=== PATIENT | female | born 1975 | race Caucasian/White ===

== ENCOUNTER 2018-10-31 14:35 | Inpatient (IN) | payer OTHER ==
[2018-10-31 16:03] VITALS: BMI 18.6
--- NOTE | 2018-10-31 17:48 | HP ---
CIWA Score Nausea/Vomitin (Vomited x 2 while waiting.) Muscle Tremors: 4-Moderate,w/Arms Extend Anxiety: 3 Agitation: 3 Paroxysmal Sweats: 3 (Facial moisture) Orientation: 1-Uncertain about Date Tacttile Disturbances: 0-None Auditory Disturbances: 0-None Visual Disturbances: 0-None Headache: 0-None Present CIWA-Ar Total Score: 17 - Admission Criteria OAS Guidelines: Admission for Medically Managed Detox: Requires at least one of the followin. CIWA greater than 12 2. Seizures within the past 24 hours 3. Delirium tremens within the past 24 hours 4. Hallucinations within the past 24 hours 5. Acute intervention needed for co occurring medical disorder 6. Acute intervention needed for co occurring psychiatric disorder 7. Severe withdrawal that cannot be handled at a lower level of care (continued vomiting, continued diarrhea, abnormal vital signs) requiring intravenous medication and/or fluids 8. Patient presents the following: CIWA greater than 12 Admission Criteria Met: Admission criteria met Admission ROS [facility] Chief Complaint: States having withdrawals. Allergies/Adverse Reactions: Allergies Allergy/AdvReac Type Severity Reaction Status Date / Time No Known Allergies Allergy Verified 10/31/18 17:10 History of Present Illness: Here for detox from alcohol, benzo, cocaine and opiates. Alcohol use began at age 10. Nicotine use began at age 10. Cocaine use began at age 12. Heroin use began at age 13. Continues to use opiates despite being on methadone. IVDU. Denies sharing needles or works. Xanax use began at age 23. (Does not taken in a couple of days) Currently on [facility] MMTP ([phone]) - states started about 1 month ago. States currently on 60 mg Methadone and states last medicated today. Hx 5 overdoses. States last 1 year ago. States has a Narcan kit. Denies thoughts of harming self or others. Hx: Asthma - denies recent exacerbation. Search Terms: Cristela Leon, 1975 Search Date: 10/31/2018 05:37:57 PM The Drug Utilization Report below displays all of the controlled substance prescriptions, if any, that your patient has filled in the last twelve months. The information displayed on this report is compiled from pharmacy submissions to the Department, and accurately reflects the information as submitted by the pharmacies. This report was requested by: Анна Sagastume | Reference #: [id number] Others' Prescriptions Patient Name: Cristela Leon Date: 1975 Address: [place] [address] Sex: Female Rx Written Rx Dispensed Drug Quantity Days Supply Prescriber Name 09/19/2018 09/19/2018 chlordiazepoxide 25 mg capsule 8 2 Mandeep Milner ( SERGO) Patient Name: Cristela Leon Date: 1975 Address: [address] [place] [address] [address] [place] [address] Sex: Female Rx Written Rx Dispensed Drug Quantity Days Supply Prescriber Name 06/10/2018 06/10/2018 methadone hcl 10 mg tablet 11 6 Ingris Sagastume Exam Limitations: No Limitations - Ebola screening Have you traveled outside of the country in the last 21 days: No Have you had contact with anyone from an Ebola affected area: No Have you been sick,other than usual withdrawal symptoms: No Do you have a fever: No - Review of Systems Constitutional: Chills, Diaphoresis EENT: reports: Blurred Vision, Dental Problems (Missing and broken teeth. Some tooth pain.) Respiratory: reports: No Symptoms reported Cardiac: reports: No Symptoms Reported GI: reports: Diarrhea, Abdominal cramping : reports: No Symptoms Reported Musculoskeletal: reports: Back Pain (Chronic low back pain achy "10" increases w / movement and improves with rest) Integumentary: reports: Lesions (Injection sites) Neuro: reports: Numbness (In fingers), Tremors Endocrine: reports: No Symptoms Reported Hematology: reports: No Symptoms Reported Psychiatric: reports: Judgement Intact, Agitated, Anxious, Depressed (Denies thoughts of harming self or others), Disorientated (U) Other Systems: Reviewed and Negative (of date) Patient History - Patient Medical History Hx Asthma: No Hx Chronic Obstructive Pulmonary Disease (COPD): No Hx Cardiac Disorders: No Hx Hypertension: No Hx Seizures: No Hx Diabetes: No Hx Gastrointestinal Disorders: No Hx Genitourinary Disorders: No Hx Sexually Transmitted Disorders: No Hx Renal Disease (ESRD): No Hx Human Immunodeficiency Virus (HIV): No (2017) Hx Depression: Yes Hx Suicide Attempt: Yes (Pt tried her wrist at age 13 yrs.) Hx Schizophrenia: No - Patient Surgical History Past Surgical History: Yes Hx Abdominal Surgery: Yes (hysterectomy in 2002 from fibroids.) - PPD History Previous Implant?: Yes Documented Results: Negative w/o proof Implanted On Prior [facility] Admission?: No PPD to be Administered?: Yes - Reproductive History Patient is a Female of Child Bearing Age (11 -55 yrs old): Yes LMP comment: Hysterectomy 2002 Patient : No - Smoking Cessation Smoking history: Current every day smoker Have you smoked in the past 12 months: Yes Aproximately how many cigarettes per day: 20 Hx Chewing Tobacco Use: No Initiated information on smoking cessation: Yes 'Breaking Loose' booklet given: 10/31/18 - Substance & Tx. History Hx Alcohol Use: Yes Hx Substance Use: Yes Substance Use Type: Alcohol, Cocaine, Heroin, Opiates Hx Substance Use Treatment: Yes (detox, rehab, currently on in a MMTP) - Substances Abused Alcohol Route: Oral Frequency: Daily Amount used: 2 four locos/ 1 pint rum Age of first use: 10 Date of Last Use: 10/30/18 Alprazolam (Xanax) Route: Oral Frequency: Daily Amount used: 4mg Age of first use: 23 Date of Last Use: 10/30/18 Cocaine Route: Injection Frequency: Daily Amount used: 1 gram Age of first use: 12 Date of Last Use: 10/30/18 Heroin Route: Injection Frequency: Daily Amount used: 2-3 gram Age of first use: 13 Date of Last Use: 10/31/18 Admission Physical Exam S - Vital Signs Vital Signs: Vital Signs - 24 hr 10/31/18 16:01 Temperature 96.0 F L Pulse Rate 62 Respiratory 18 Rate Blood Pressure 106/66 - Physical General Appearance: Yes: Mild Distress, Tremorous, Sweating, Anxious HEENTM: Yes: EOMI, Hearing grossly Normal, Normocephalic, [place] (Pupils = 2 mm), Pharynx Normal, Nasal Congestion, Other (Missing and chipped teeth, dental caries. No abscess noted) Respiratory: Yes: Lungs Clear, Normal Breath Sounds, No Respiratory Distress Neck: Yes: No masses,lesions,Nodules, Supple Breast: Yes: Breast Exam Deferred Cardiology: Yes: Regular Rhythm, Regular Rate, S1, S2 Abdominal: Yes: Non Tender, Flat, Soft, Increased Bowel Sounds Genitourinary: Yes: Within Normal Limits Back: Yes: Normal Inspection Musculoskeletal: Yes: full range of Motion, Gait Steady Extremities: Yes: Normal Capillary Refill, Normal Range of Motion, Non-Tender, Tremors (hand tremors at rest which increase with arms elevated) Neurological: Yes: child health associate II-XII NML intact, Alert, Motor Strength 5/5, Normal Mood /Affect Integumentary: Yes: Normal Color, Dry (Decreased skin turgo), Warm, Track Chatman (Old and new track chatman on both arms. Increased erythema (R) antecubital area.) Lymphatic: Yes: Within Normal Limits - Diagnostic (1) Alcohol dependence with uncomplicated withdrawal Current Visit: Yes Status: Acute (2) Sedative, hypnotic or anxiolytic dependence with withdrawal, uncomplicated Current Visit: Yes Status: Acute (3) Cocaine dependence, uncomplicated Current Visit: Yes Status: Chronic (4) Methadone maintenance therapy patient Current Visit: Yes Status: Chronic (5) Nicotine dependence, uncomplicated Current Visit: Yes Status: Acute Qualifiers: Nicotine product type: cigarettes Qualified Code(s): F17.210 - Nicotine dependence, cigarettes, uncomplicated (6) Asthma Current Visit: Yes Status: Chronic Qualifiers: Asthma severity: unspecified severity Asthma persistence: unspecified Asthma complication type: unspecified Qualified Code(s): J45.909 - Unspecified asthma, uncomplicated (7) Pain, dental Current Visit: Yes Status: Chronic (8) Track chatman due to intravenous drug abuse Current Visit: Yes Status: Chronic (9) Opioid dependence, uncomplicated Current Visit: Yes Status: Chronic Comment: Continues to use heroin and other opiates despite being on methadone program. Cleared for Admission [facility] - Detox or Rehab [facility] Level of Care: Medically Managed Detox Regimen/Protocol: Librium [facility] Breath Alcohol Content Breath Alcohol Content: 0 Urine Pregancy Test - Result Urine Test Results: Negative- NO Line Present Urine Drug Screen - Results Drug Screen Negative: No Urine Drug Screen Results: KRISTAN-Cocaine, OPI-Opiates, MET-Methamphetamine, MTD- Methadone, FEN-Fentanyl
[2018-10-31] MEDS ORDERED: P-EPHED 60MG/TRIPROLIDI 2.5MG TABLET PO PRN (19:15)
[2018-10-31] MEDS ORDERED: LOPERAMIDE HCL 2 MG CAPSULE PO PRN (19:15)
[2018-10-31] MEDS ORDERED: MAG HYDROX/AL HYDROX/SIMETH 30 ML UNIT-DOSE CUP PO PRN (19:15)
[2018-10-31] MEDS ORDERED: MAGNESIUM HYDROX 2400MG/30ML ORAL SUSPENSION 30 ML CUP PO PRN (19:15)
[2018-10-31] MEDS ORDERED: MAGNESIUM CITRATE 300 ML BOTTLE PO PRN (19:15)
[2018-10-31] MEDS ORDERED: IBUPROFEN 400 MG TABLET (FP) PO PRN (19:15)
[2018-10-31] MEDS ORDERED: chlordiazePOXIDE HCL 25 MG CAPSULE PO PRN (19:15)
[2018-10-31] MEDS ORDERED: ACETAMINOPHEN 325 MG TABLET (FP) PO PRN (19:15)
[2018-10-31] MEDS ORDERED: chlordiazePOXIDE HCL 25 MG CAPSULE PO ONE (19:15)
[2018-10-31] MEDS ORDERED: MENTHOL/PHENOL 1 EACH UD MM PRN (19:15)
[2018-10-31] MEDS ORDERED: ALBUTEROL SO4 0.083% IH SOL 2.5 MG/3 ML VIAL.NEB. NEB PRN (19:17)
[2018-10-31] MEDS ORDERED: BENZOCAINE 20 % GEL TUBE MM PRN (19:17)
[2018-10-31] MEDS ORDERED: MELATONIN 5 MG TABLETS PO PRN (22:00)
[2018-10-31] MEDS: THIAMINE HCL 100 MG TABLET (FP) PO SCH (23:21)
[2018-10-31] MEDS: chlordiazePOXIDE HCL 25 MG CAPSULE PO SCH (23:21)
[2018-11-01] MEDS: chlordiazePOXIDE HCL 25 MG CAPSULE PO SCH ×4 (05:48→23:01)
[2018-11-01] MEDS ORDERED: METHADONE HCL 10 MG TABLET PO SCH (09:00)
[2018-11-01] MEDS ORDERED: METHADONE HCL 40 MG DISPERSABLE TABLET ONE (09:25)
[2018-11-01] MEDS ORDERED: METHADONE HCL 10 MG TABLET ONE (09:26)
--- NOTE | 2018-11-01 10:06 | EKG ---
Test Reason : Blood Pressure : / mmHG Vent. Rate : 064 BPM Atrial Rate : 064 BPM P-R Int : 148 ms QRS Dur : 082 ms QT Int : 412 ms P-R-T Axes : 057 074 056 degrees QTc Int : 425 ms NORMAL SINUS RHYTHM NORMAL ECG NO PREVIOUS ECGS AVAILABLE Confirmed by Caleb Horvath MD ([id number]) on 11/01/2018 10:06:14 AM Referred By: Confirmed By:Caleb Horvath MD
[2018-11-01 10:28] LABS: HEMATOCRIT 37.7 % (32.4-45.2); HEMOGLOBIN 11.9 GM/dL (10.7-15.3); MCHC 31.6 g/dl (32.0-36.0); MEAN CELL VOLUME 85.7 fl (80-96); MEAN PLT VOLUME 7.8 fl (7.5-11.1); PLATELET COUNT 280 K/MM3 (134-434); RDW 14.7 % (11.6-15.6); WHITE BLOOD COUNT 4.8 K/mm3 (4.0-10.0)
[2018-11-01 10:40] LABS: ALK PHOS 86 U/L (45-117); ANION GAP 7 MMOL/L (8-16); BILIRUBIN,TOTAL 0.3 mg/dL (0.2-1); BLOOD UREA NITROGEN 9 mg/dL (7-18); CALCIUM 8.6 mg/dL (8.5-10.1); CHLORIDE 106 mmol/L (98-107); CO2 29 mmol/L (21-32); CREATININE 0.6 mg/dL (0.55-1.3); GLUCOSE,RANDOM 90 mg/dL (74-106); POTASSIUM 4.2 mmol/L (3.5-5.1); SGOT/AST 30 U/L (15-37); SGPT/ALT 57 U/L (13-61); SODIUM 142 mmol/L (136-145); TOT PROT 6.5 g/dl (6.4-8.2)
[2018-11-01] MEDS: BACITRACIN 0.9 GM PACKET TP SCH ×2 (10:40→23:01)
[2018-11-01] MEDS: PRENATAL VITAMINS W/ FOLIC ACID TABLET (FP) PO SCH (10:40)
[2018-11-01] MEDS: NICOTINE 21 MG/24 HOURS TOPICAL PATCH TD SCH (10:40)
[2018-11-01] MEDS: METHADONE 40 MG, METHADONE 20 MG PO SCH (10:41)
--- NOTE | 2018-11-01 12:47 | PN ---
S CIWA - CIWA Score Nausea/Vomitin-No Nausea/No Vomiting Muscle Tremors: None Anxiety: 2 Agitation: 3 Paroxysmal Sweats: 3 Orientation: 0-Oriented Tacttile Disturbances: 0-None Auditory Disturbances: 0-None Visual Disturbances: 0-None Headache: 1-Very Mild CIWA-Ar Total Score: 9 BHS Progress Note (SOAP) Subjective: PATIENT C/O IRRITABILITY, ANXIETY AND SWEATING. Objective: 11/01/18 12:46 Vital Signs Temperature 98.6 F 11/01/18 09:31 Pulse Rate 63 11/01/18 09:31 Respiratory Rate 18 11/01/18 09:31 Blood Pressure 112/66 11/01/18 09:31 O2 Sat by Pulse Oximetry (%) Laboratory Tests 11/01/18 11/01/18 11/01/18 07:00 07:00 07:00 WBC 4.8 RBC 4.40 Hgb 11.9 Hct 37.7 MCV 85.7 MCH 27.0 MCHC 31.6 L RDW 14.7 Plt Count 280 MPV 7.8 Sodium 142 Potassium 4.2 Chloride 106 Carbon Dioxide 29 Anion Gap 7 L BUN 9 Creatinine 0.6 Creat Clearance w eGFR > 60 Random Glucose 90 Calcium 8.6 Total Bilirubin 0.3 AST 30 ALT 57 Alkaline Phosphatase 86 Total Protein 6.5 Albumin 3.0 L RPR Titer Nonreactive PE: ALERT AND ORIENTED X 3 SKIN WARM AND MOIST CAR S1S2 RESP CTA BL EXT NO VISIBLE TREMORS, FULL ROM +RESTLESSNESS Assessment: 11/01/18 12:47 WITHDRAWAL SX Plan: CONTINUE DETOX ENCOURAGE ORAL FLUIDS ENSURE SUPPLEMENT ORDERED CONTINUE TO MONITOR
[2018-11-01 15:41] LABS: URINE APPEARANCE SLCLOUDY; URINE BILIRUBIN NEGATIVE (<2.0 mg/dL); URINE COLOR YELLOW; URINE GLUCOSE (UA) NEGATIVE (NEGATIVE); URINE KETONE NEGATIVE (NEGATIVE); URINE LEUK ESTERASE TRACE (NEGATIVE); URINE NITRITE NEGATIVE (NEGATIVE); URINE PROTEIN NEGATIVE (NEGATIVE); URINE UROBILINOGEN NEGATIVE mg/dL (0.2-1.0)
[2018-11-01 15:50] LABS: EPI CELLS MODERATE /HPF (FEW); URINE BACTERIA RARE /hpf (NONE SEEN); URINE MUCUS MANY
[2018-11-01] MEDS: THIAMINE HCL 100 MG TABLET (FP) PO SCH (23:01)
[2018-11-02] MEDS ORDERED: METHADONE HCL 40 MG DISPERSABLE TABLET ONE (06:12)
[2018-11-02] MEDS ORDERED: METHADONE HCL 10 MG TABLET ONE (06:12)
[2018-11-02] MEDS: METHADONE 40 MG, METHADONE 20 MG PO SCH (06:13)
[2018-11-02] MEDS: chlordiazePOXIDE HCL 25 MG CAPSULE PO SCH ×3 (06:14→17:34)
[2018-11-02] MEDS: NICOTINE POLACRILEX 2 MG GUM BC PRN (08:47)
[2018-11-02] MEDS: BACITRACIN 0.9 GM PACKET TP SCH ×2 (11:01→22:32)
[2018-11-02] MEDS: PRENATAL VITAMINS W/ FOLIC ACID TABLET (FP) PO SCH (11:01)
[2018-11-02] MEDS: NICOTINE 21 MG/24 HOURS TOPICAL PATCH TD SCH (11:02)
--- NOTE | 2018-11-02 16:31 | PN ---
S CIWA - CIWA Score Nausea/Vomitin-Mild Nausea/No Vomiting Muscle Tremors: None Anxiety: 3 Agitation: 4-Moderately Restless Paroxysmal Sweats: No Perspiration Orientation: 0-Oriented Tacttile Disturbances: 1-Very Mild Itch/Numbness Auditory Disturbances: 0-None Visual Disturbances: 0-None Headache: 0-None Present CIWA-Ar Total Score: 9 BHS Progress Note (SOAP) Subjective: PATIENT C/O ANXIETY, RESTLESSNESS, MILD ITCHING TO FEET AND INTERRUPTED SLEEP. Objective: 11/02/18 16:29 Vital Signs Temperature 97.5 F L 11/02/18 14:33 Pulse Rate 71 11/02/18 14:33 Respiratory Rate 16 11/02/18 14:33 Blood Pressure 93/58 L 11/02/18 14:33 O2 Sat by Pulse Oximetry (%) Laboratory Tests 10/31/18 11/01/18 11/01/18 11:45 07:00 07:00 WBC 4.8 RBC 4.40 Hgb 11.9 Hct 37.7 MCV 85.7 MCH 27.0 MCHC 31.6 L RDW 14.7 Plt Count 280 MPV 7.8 Sodium 142 Potassium 4.2 Chloride 106 Carbon Dioxide 29 Anion Gap 7 L BUN 9 Creatinine 0.6 Creat Clearance w eGFR > 60 Random Glucose 90 Calcium 8.6 Total Bilirubin 0.3 AST 30 ALT 57 Alkaline Phosphatase 86 Total Protein 6.5 Albumin 3.0 L Urine Color Yellow Urine Appearance Slcloudy Urine pH 6.0 Ur Specific Edward 1.018 Urine Protein Negative Urine Glucose (UA) Negative Urine Ketones Negative Urine Blood Negative Urine Nitrite Negative Urine Bilirubin Negative Urine Urobilinogen Negative Ur Leukocyte Esterase Trace Urine WBC (Auto) 8 Urine RBC (Auto) <1 Ur Epithelial Cells Moderate Urine Bacteria Rare Urine Mucus Many RPR Titer 11/01/18 07:00 WBC RBC Hgb Hct MCV MCH MCHC RDW Plt Count MPV Sodium Potassium Chloride Carbon Dioxide Anion Gap BUN Creatinine Creat Clearance w eGFR Random Glucose Calcium Total Bilirubin AST ALT Alkaline Phosphatase Total Protein Albumin Urine Color Urine Appearance Urine pH Ur Specific Edward Urine Protein Urine Glucose (UA) Urine Ketones Urine Blood Urine Nitrite Urine Bilirubin Urine Urobilinogen Ur Leukocyte Esterase Urine WBC (Auto) Urine RBC (Auto) Ur Epithelial Cells Urine Bacteria Urine Mucus RPR Titer Nonreactive PE: SKIN WARM AND DRY ALERT AND ORIENTED X 3 EXT FULL ROM, NO VISIBLE TREMORS AMB AD HAL +PACING IN HALLWAY Assessment: 11/02/18 16:31 WITHDRAWAL SX Plan: CONTINUE DETOX ENCOURAGE ORAL FLUIDS CONTINUE TO MONITOR
[2018-11-02] MEDS: PANTOPRAZOLE 20 MG TABLET (FP) PO SCH (19:10)
[2018-11-02] MEDS: chlordiazePOXIDE 5 MG CAPSULE PO SCH (22:32)
[2018-11-02] MEDS: THIAMINE HCL 100 MG TABLET (FP) PO SCH (22:33)
[2018-11-03] MEDS ORDERED: METHADONE HCL 10 MG TABLET ONE (05:05)
[2018-11-03] MEDS ORDERED: METHADONE HCL 40 MG DISPERSABLE TABLET ONE (05:05)
[2018-11-03] MEDS: chlordiazePOXIDE 5 MG CAPSULE PO SCH ×4 (06:02→17:21)
[2018-11-03] MEDS: METHADONE 40 MG, METHADONE 20 MG PO SCH (06:02)
[2018-11-03] MEDS: PRENATAL VITAMINS W/ FOLIC ACID TABLET (FP) PO SCH (10:30)
[2018-11-03] MEDS: BACITRACIN 0.9 GM PACKET TP SCH ×2 (10:30→22:58)
[2018-11-03] MEDS: NICOTINE POLACRILEX 2 MG GUM BC PRN (10:31)
[2018-11-03] MEDS: NICOTINE 21 MG/24 HOURS TOPICAL PATCH TD SCH (10:31)
[2018-11-03] MEDS: PANTOPRAZOLE 20 MG TABLET (FP) PO SCH (10:31)
--- NOTE | 2018-11-03 12:05 | PN ---
BHS Progress Note (SOAP) Subjective: sweats agitation Objective: 11/03/18 12:05 Vital Signs Temperature 98.1 F 11/03/18 09:49 Pulse Rate 65 11/03/18 09:49 Respiratory Rate 18 11/03/18 09:49 Blood Pressure 91/51 L 11/03/18 09:49 O2 Sat by Pulse Oximetry (%) [id number] ambulating no acute distress Assessment: 11/03/18 12:05 mild withdrawal sx Plan: continue detox increase fluids d/c in am
[2018-11-03] MEDS ORDERED: traZODone HCL 50 MG TABLET (FP) PO SCH (22:00)
[2018-11-03] MEDS: chlordiazePOXIDE HCL 10 MG CAPSULE PO SCH (22:58)
[2018-11-03] MEDS: THIAMINE HCL 100 MG TABLET (FP) PO SCH (22:59)
[2018-11-04] MEDS ORDERED: METHADONE HCL 40 MG DISPERSABLE TABLET ONE (05:04)
[2018-11-04] MEDS ORDERED: METHADONE HCL 10 MG TABLET ONE (05:05)
[2018-11-04] MEDS: chlordiazePOXIDE HCL 10 MG CAPSULE PO SCH (05:36)
[2018-11-04] MEDS: METHADONE 40 MG, METHADONE 20 MG PO SCH (06:14)
[2018-11-04 07:09] VITALS: BP 112/65; PULSE 64; TEMP 98.2
--- NOTE | 2018-11-04 10:00 | DS ---
[facility] Detox Discharge Summary Admission Date: 10/31/18 Discharge Date: 11/04/18 - History Present History: Alcohol Dependence, Sedative Dependence, MMTP - Physical Exam Results Vital Signs: Vital Signs Temperature 98.2 F 11/04/18 07:07 Pulse Rate 64 11/04/18 07:07 Respiratory Rate 16 11/04/18 07:07 Blood Pressure 112/65 11/04/18 07:07 O2 Sat by Pulse Oximetry (%) - Treatment Hospital Course: Detox Protocol Followed, Detoxed Safely, Responded well, Discharged Condition Good, Rehab Referral Accepted - Medication Discharge Medications: Ambulatory Orders NK [No Known Home Medication] 10/31/18 - Diagnosis (1) Alcohol dependence with uncomplicated withdrawal Current Visit: Yes Status: Chronic (2) Nicotine dependence, uncomplicated Current Visit: Yes Status: Chronic Qualifiers: Nicotine product type: cigarettes Qualified Code(s): F17.210 - Nicotine dependence, cigarettes, uncomplicated (3) Sedative, hypnotic or anxiolytic dependence with withdrawal, uncomplicated Current Visit: Yes Status: Chronic (4) Asthma Current Visit: Yes Status: Chronic Qualifiers: Asthma severity: unspecified severity Asthma persistence: unspecified Asthma complication type: unspecified Qualified Code(s): J45.909 - Unspecified asthma, uncomplicated (5) Cocaine dependence, uncomplicated Current Visit: Yes Status: Chronic (6) Methadone maintenance therapy patient Current Visit: Yes Status: Chronic (7) Pain, dental Current Visit: Yes Status: Chronic (8) Track radford due to intravenous drug abuse Current Visit: Yes Status: Chronic - AMA Did Patient Leave Against Medical Advice: No (going home. referred to outpatient )
== END 2018-11-04 08:50 | disposition home or self-care (01) | DRG 773 ==
LOC: YASAS 14:35 → Y6N 17:45
PROC: HZ2ZZZZ Detoxification Services for Substance Abuse Treatment (ICD-10-PCS; principal; 2018-10-31)
DX: F10.230 Alcohol dependence with withdrawal, uncomplicated (principal); F11.20 Opioid dependence, uncomplicated; F13.230 Sedative, hypnotic or anxiolytic dependence with withdrawal, uncomplicated; F14.20 Cocaine dependence, uncomplicated; F17.210 Nicotine dependence, cigarettes, uncomplicated; J45.909 Unspecified asthma, uncomplicated; K08.89 Other specified disorders of teeth and supporting structures; L90.8 Other atrophic disorders of skin; Z91.5 Personal history of self-harm
CPT/HCPCS: 36415; 80053; 81003; 81015; 85027; 86593; 93005; 93010